=== PATIENT | male | born 1995 | race Caucasian/White ===

== ENCOUNTER 2019-12-28 15:53 | Emergency (ER) | payer SELFPAY ==
[~2019-12-28] VITALS: Ht 182.9 cm; Wt 86.4 kg
[2019-12-28 16:08] VITALS: TEMP 96
[2019-12-28 18:58] VITALS: BP 125/77; PULSE 82
== END 2019-12-28 19:03 | disposition home or self-care (01) ==
LOC: COL.ER 15:53
DX: S61.412A Laceration without foreign body of left hand, initial encounter (principal); W26.0XXA Contact with knife, initial encounter; Y99.0 Civilian activity done for income or pay